=== PATIENT | male | born 1965 | race Caucasian/White ===

== ENCOUNTER 2023-09-08 12:04 | Emergency (ER) | payer SELFPAY ==
[2023-09-08] MEDS: HYDROmorphone 0.5 MG/0.5 ML Syringe IVPUSH ONE ×2 (13:18→14:25)
[2023-09-08] MEDS: Sodium Chloride 0.9% 10 ML Syringe FLUSH PRN (13:19)
[2023-09-08 13:29] LABS: BASOPHILS ABSOLUTE AUTO 0.1 K/mm3 (0.0-0.2); BASOPHILS PERCENT AUTO 0.9 % (0.0-1.0); EOSINOPHILS ABSOLUTE AUTO 0.2 K/mm3 (0.0-0.4); EOSINOPHILS PERCENT AUTO 2.5 % (0.0-6.0); HEMATOCRIT 47.8 % (42.0-52.0); HEMOGLOBIN 16.2 gm/dl (14.0-18.0); IMMATURE GRAN ABSOLUTE AUTO 0.04 K/mm3 (0.00-0.05); IMMATURE GRAN PERCENT AUTO 0.5 % (0.0-0.4); LYMPHOCYTES ABSOLUTE AUTO 2.7 K/mm3 (1.0-4.8); LYMPHOCYTES PERCENT AUTO 30.5 % (24.0-44.0); MEAN CORPUSCULAR HEMOGLOBIN 32.7 pg (28.0-32.0); MEAN CORPUSCULAR HGB CONC 33.9 g/dl (32.0-36.0); MEAN CORPUSCULAR VOLUME 96.6 fl (83.0-99.0); MEAN PLATELET VOLUME 10.4 fl (9.4-12.4); MONOCYTES ABSOLUTE AUTO 0.8 K/mm3 (0.0-0.8); NEUTROPHILS ABSOLUTE AUTO 4.9 K/mm3 (1.8-7.7); NEUTROPHILS PERCENT AUTO 56.6 % (41.0-71.0); PLATELET COUNT,PLT 210 K/mm3 (150-400); RED BLOOD CELL COUNT 4.95 M/mm3 (4.52-5.90); WHITE BLOOD CELL COUNT,WBC 8.73 K/mm3 (3.9-11.3)
[2023-09-08] MEDS: Iopamidol 612 MG/ML 30 ML SDV IVPUSH ONE (13:31)
[2023-09-08 13:52] LABS: ALBUMIN 3.9 g/dl (3.4-5.0); ANION GAP 15.3 (5-15); BILIRUBIN TOTAL 0.3 mg/dL (0.2-1.0); BUN/CREATININE RATIO 12.7 (14-18); C-REACTIVE PROTEIN 0.8 mg/dL (<0.30); CALCIUM 9.4 mg/dL (8.5-10.1); CREATININE 1.1 mg/dL (0.7-1.3); EST CRCL DRUG DOSING (CG) 77.01 mL/min; PROTEIN TOTAL,TP 7.9 g/dl (6.4-8.2)
[2023-09-08 13:53] LABS: POTASSIUM,K 4.3 mEq/L (3.5-5.1)
[2023-09-08 13:56] LABS: PROTHROMBIN TIME 9.8 SECONDS (9.7-12.0)
[2023-09-08 13:57] LABS: INR < 0.93; PTT,PARTIAL THROMBOPLSTIN TIME 26.8 SECONDS (21.7-31.4)
== END 2023-09-08 15:47 | disposition home or self-care (01) ==
LOC: JD.ED 12:04
DX: K11.20 Sialoadenitis, unspecified (principal); D11.9 Benign neoplasm of major salivary gland, unspecified
CPT/HCPCS: 36415; 70491; 80053; 85025; 85610; 85730; 86140; 96374; 96376; 99284; J1170; J3490; Q9967